=== PATIENT | female | born 1990 | race American Indian/Alaskan Native ===

== ENCOUNTER 2019-02-15 16:28 | Outpatient (CLI) | payer BC, MEDICAID ==
--- NOTE | 2019-02-15 17:03 | Emergency Department Report ---
Blank Doc - Documentation Documentation: This is a 28-year-old female that presents with pelvic pain. Patient stated is 20 weeks as per ultrasound. This initial assessment/diagnostic orders/clinical plan/treatment(s) is/are subject to change based on patient's health status, clinical progression and re-assessment by fellow clinical providers in the ED. Further treatment and workup at subsequent clinical providers discretion. Patient/guardians urged not to elope from the ED as their condition may be serious if not clinically assessed and managed. Initial orders include: 1- Patient sent to Labor and Delivery with RN for further evaluation and treatment due to being 20 weeks.
[2019-02-15] MEDS ORDERED: LACTATED RINGERS 500 ML IV ONE (17:57)
[2019-02-15 18:35] LABS: Bilirubin,Urine NEG (Negative); Blood,Urine NEG (Negative); Color,Urine Yellow (Yellow); Mucus,Urine FEW /HPF; Protein,Urine <15 mg/dL mg/dL (Negative); Urobilinogen,Urine < 2.0 mg/dL (<2.0)
[2019-02-15 18:46] VITALS: BP 121/70
== END 2019-02-15 19:51 | disposition home or self-care (01) ==
LOC: EDSTATUS 17:28 → TRG 17:36
PROVIDERS: ATTEND Obstetrics & Gynecology
DX: O47.02 False labor before 37 completed weeks of gestation, second trimester (principal); Z3A.20 20 weeks gestation of pregnancy
CPT/HCPCS: 59025; 81001